=== PATIENT | male | born 1945 | race Caucasian/White ===

== ENCOUNTER → 2020-03-22 12:39 | Outpatient (CLI) | payer MEDICARE, SELFPAY ==
[2020-03-22 13:31] LABS: Uric Acid 6.9 mg/dL (3.5-8.5)
== END ==
PROVIDERS: PCP Internal Medicine; Referring Provider Podiatrist; Visit Provider Podiatrist
DX: M25.571 Pain in right ankle and joints of right foot (principal)
CPT/HCPCS: 36415; 84550

== ENCOUNTER → 2020-07-24 16:07 | Outpatient (CLI) | payer MEDICARE, SELFPAY ==
[2020-07-25 18:43] LABS: COVID19 Sendout Not Detected (Not Detect)
== END ==
PROVIDERS: PCP Internal Medicine; Visit Provider Physician Assistant
DX: Z11.59 Encounter for screening for other viral diseases (principal)
CPT/HCPCS: 87635

== ENCOUNTER → 2020-10-25 10:37 | Outpatient (CLI) | payer MEDICARE, SELFPAY ==
--- NOTE | 2020-10-25 | DI.CT.S_ITS ---
PROCEDURE: CT UE RT WO CON INDICATIONS: Primary osteoarthritis, right shoulder TECHNIQUE: Noncontrast 1-1.5 mm thick sections acquired from the acromioclavicular joint to the inferior scapula, with coronal and sagittal reformatting. COMPARISON: None. FINDINGS: Image quality: Excellent. Bones: Severe glenohumeral joint degeneration with bulky osteophyte formation. There is oaiq-um-pyep appearance. Multiple scattered loose bodies versus heterotopic ossification seen anterior to the humeral head, subcentimeter in size. No fracture. Severe AC joint degeneration. Soft tissues: The visualized right upper lobe grossly unremarkable except for scattered scarring/atelectasis. Calcific tendinitis noted image 190/5. IMPRESSION: Severe right shoulder osteoarthritis with pmtd-ju-xtcs appearance. Bulky osteophyte formation. Multiple sub cm possible small loose bodies and/or heterotopic ossification at the anterior joint. Calcific tendonitis Dictated by: Gokul Bertrand M.D. on 10/25/2020 at 11:25 Approved by: Gokul Bertrand M.D. on 10/25/2020 at 11:34
== END ==
PROVIDERS: PCP Internal Medicine; Referring Provider Internal Medicine; Visit Provider Orthopaedic Surgery
DX: M19.011 Primary osteoarthritis, right shoulder (principal); M75.31 Calcific tendinitis of right shoulder
CPT/HCPCS: 73200

== ENCOUNTER → 2021-01-16 10:43 | Outpatient (CLI) | payer MEDICARE, SELFPAY ==
[2021-01-16] MEDS: COVID-19 VACC, Ad26(JANSSEN)/PF 0.5 ML IM (10:48)
== END ==
PROVIDERS: PCP Internal Medicine; Visit Provider Internal Medicine
DX: Z23 Encounter for immunization (principal)
CPT/HCPCS: 0031A; 91303

== ENCOUNTER 2021-06-12 15:58 | Emergency (ER) | payer MEDICARE, SELFPAY ==
[2021-06-12 16:06] VITALS: BP 205/93; PULSE 70; RESP 18; TEMP 36.7; O2SAT 98
--- NOTE | 2021-06-12 16:09 | DI.RAD.S_ITS ---
PROCEDURE: XR CHEST 2V INDICATIONS: Chest pain TECHNIQUE: 2 views of the chest were acquired. COMPARISON: None. FINDINGS: Surgical changes and devices: None. Lungs and pleura: Lungs are clear. No pleural effusions or pneumothorax. Mediastinum: Mediastinal contours are normal. Heart size is normal. Bones and chest wall: No suspicious bony abnormalities. Soft tissues appear unremarkable. IMPRESSION: No acute cardiopulmonary process demonstrated radiographically. Dictated by: Keny Perez M.D. on 06/12/2021 at 16:33 Approved by: Keny Perez M.D. on 06/12/2021 at 16:34
[2021-06-12 16:29] LABS: Add Manual Diff / Slide Review NO; Basophils Absolute Auto 100 /uL (0-100); Basophils Percent Auto 0.9 % (0-2); Eosinophils Absolute Auto 100 /uL (0-450); Eosinophils Percent Auto 1.9 % (2-4); Hematocrit 43.4 % (41-53); Hemoglobin 14.5 g/dL (13.5-17.5); Lymphocytes Absolute Auto 1800 /uL (1100-4500); Lymphocytes Percent Auto 29.7 % (25-40); Mean Corpuscular HGB Conc 33.5 % (30-36); Mean Corpuscular Hemoglobin 31.4 PG (26-34); Mean Corpuscular Volume 93.7 fL (80-100); Monocytes Absolute Auto 600 /uL (0-900); Monocytes Percent Auto 10.4 % (3-14); Neutrophils Absolute Auto 3500 /uL (1500-7000); Neutrophils Percent Auto 57.1 % (50-75); Platelet Count 196 X10^3/uL (150-400); Red Blood Cell Count 4.63 X10^6/uL (4.5-5.9); Red Cell Distribution Width 13.2 % (11.6-14.8); White Blood Cell Count 6.1 X10^3/uL (4.5-11.0)
[2021-06-12 16:45] LABS: Alanine Aminotransferase 27 IU/L (<50); Albumin 4.9 g/dL (3.5-5.0); Albumin Globulin Ratio 1.6 (1.0-2.8); Alkaline Phosphatase 69 U/L (38-126); Aspartate Aminotransferase 44 IU/L (17-59); BUN Creatinine Ratio 23.8 (6-22); Bilirubin Total 0.7 mg/dL (0.2-1.3); Blood Urea Nitrogen 36 mg/dL (9-20); Calcium 10.3 mg/dL (8.4-10.2); Carbon Dioxide 22 mmol/L (22-32); Chloride 104 mmol/L (98-107); Creatine Kinase 275 U/L (55-170); Estimated Glomerular Filt Rate 45.4 mL/min (>60); Globulin 3.1 g/dL (1.7-4.1); Glucose 137 mg/dL (80-110); HEMOLYSIS 20 (0-50); Lipase 118 U/L (23-300); Sodium 137 mmol/L (137-145)
[2021-06-12 16:49] LABS: D Dimer < 200 ng/mL (<230)
[2021-06-12 16:57] LABS: Troponin I < 0.012 ng/mL (0.01-0.034)
[2021-06-12 17:01] LABS: Creatine Kinase MB 5.56 ng/mL (<2.37)
--- NOTE | 2021-06-12 20:29 | ED.CHESTPAIN ---
HPI - Chest Pain General Chief Complaint: Chest Pain Stated Complaint: sent for central chest pain Source: patient Mode of arrival: Ambulatory History of Present Illness HPI narrative: Patient left without being seen by myself. Related Data Home Medications Medication Instructions Recorded Confirmed Metformin Hydrochloride 850 mg PO TID #0 03/07/13 (GLUCOPHAGE) ACETAMINOPHEN 325 mg PO Q6HP PRN #0 tab 08/14/16 [ACCU-CHEK ANDRES PLUS] #0 08/14/16 glyburide 5 mg tablet 850 mg PO TID #0 08/14/16 [LISINOPRIL] #0 09/11/16 vit C,M-Bn-rzapqu-lutein-zeaxan 60 1 cap PO QDAY #0 12/28/17 mg-13.5 mg-15 mg-2 mg-6 mg capsule (Ocuvite Lutein and Zeaxanthin) Previous Rx's Medication Instructions Recorded benzonatate 100 mg capsule 100 mg PO TID #30 cap 12/28/17 (Tessalon Perles) ipratropium 20 mcg-albuterol 100 1 puff INH QID #1 inh 12/28/17 mcg/actuation mist for inhalation (Combivent Respimat) Allergies Allergy/AdvReac Type Severity Reaction Status Date / Time No Known Drug Allergies Allergy Verified 06/12/21 16:08 Exam Initial Vital Signs Initial Vital Signs: Vital Signs Temperature 98.1 F 06/12/21 16:06 Pulse Rate 70 06/12/21 16:06 Respiratory Rate 18 06/12/21 16:06 Blood Pressure 205/93 H 06/12/21 16:06 Pulse Oximetry 98 06/12/21 16:06 Course Orders Ordered: ED Orders 06/12/21 16:09 XR chest 2V Stat EKG-12 Lead Stat 06/12/21 16:16 Complete Blood Count AUTO DIFF Stat Comprehensive Metabolic Panel Stat DD [D Dimer] Stat Lipase Stat Troponin & CK Cardiac Panel Stat Vital Signs Vital signs: Vital Signs - 8 hr 06/12/21 16:06 Temperature 98.1 F Pulse Rate 70 Respiratory Rate 18 Blood Pressure 205/93 H Pulse Oximetry 98 MDM - Chest Pain Lab Data Result diagrams: 06/12/21 16:16 06/12/21 16:16 Labs: Lab Results 06/12/21 06/12/21 06/12/21 Range/Units 16:16 16:16 16:16 WBC 6.1 (4.5-11.0) X10^3/uL RBC 4.63 (4.5-5.9) X10^6/uL Hgb 14.5 (13.5-17.5) g/dL Hct 43.4 (41-53) % MCV 93.7 (80-100) fL MCH 31.4 (26-34) PG MCHC 33.5 (30-36) % RDW 13.2 (11.6-14.8) % Plt Count 196 (150-400) X10^3/uL Neut % (Auto) 57.1 (50-75) % Lymph % (Auto) 29.7 (25-40) % [place]cock % (Auto) 10.4 (3-14) % Eos % (Auto) 1.9 L (2-4) % Baso % (Auto) 0.9 (0-2) % Neut # (Auto) 3500 (6214-9143) /uL Lymph # (Auto) 1800 (3836-3022) /uL [place]cock # (Auto) 600 (0-900) /uL Eos # (Auto) 100 (0-450) /uL Baso # (Auto) 100 (0-100) /uL D-Dimer < 200 (<230) ng/mL Sodium 137 (137-145) mmol/L Potassium 4.0 (3.4-5.1) mmol/L Chloride 104 (98-107) mmol/L Carbon Dioxide 22 (22-32) mmol/L BUN 36 H (9-20) mg/dL Creatinine 1.51 H (0.66-1.25) mg/dL Estimated GFR 45.4 L (>60) mL/min BUN/Creatinine Ratio 23.8 H (6-22) Glucose 137 H (80-110) mg/dL Calcium 10.3 H (8.4-10.2) mg/dL Total Bilirubin 0.7 (0.2-1.3) mg/dL AST 44 (17-59) IU/L ALT 27 (<50) IU/L Alkaline Phosphatase 69 (38-126) U/L Total Creatine Kinase 275 H (55-170) U/L CK-MB (CK-2) 5.56 H (<2.37) ng/mL CK-MB (CK-2) Rel Index 2.0 (1.5-5.0) % Troponin I < 0.012 (0.01-0.034) ng/mL Total Protein 8.0 (6.3-8.2) g/dL Albumin 4.9 (3.5-5.0) g/dL Globulin 3.1 (1.7-4.1) g/dL Albumin/Globulin Ratio 1.6 (1.0-2.8) Lipase 118 (23-300) U/L Imaging Data Chest x-ray: Radiologist's Impression: [address] [id number] ReportSigned Patient: Arslan Bain SMR#: [id number]: 6Acct:[id number]/Sex: 75 / MDate of Service: 06/12/21Loc: EDAccession Number: [id number] Procedure: XR chest 2V Ordering Provider: Claire Moseley D.O. PROCEDURE: XR CHEST 2V INDICATIONS: Chest pain TECHNIQUE: 2 views of the chest were acquired. COMPARISON: None. FINDINGS: Surgical changes and devices: None. Lungs and pleura: Lungs are clear. No pleural effusions or pneumothorax. Mediastinum: Mediastinal contours are normal. Heart size is normal. Bones and chest wall: No suspicious bony abnormalities. Soft tissues appear unremarkable. IMPRESSION: No acute cardiopulmonary process demonstrated radiographically. Dictated by: Keny Perez M.D. on 06/12/2021 at 16:33 Approved by: Keny Perez M.D. on 06/12/2021 at 16:34 ECG Data Interpretation: NSR, rate 63, pr 162, qrs of 98, qtc 423. No acute ST chnges appreciated. Patient has prior from 05/23/16 and appears similar. Discharge Plan Departure Patient Disposition: Left Without Being Seen Clinical Impression: Patient left before evaluation by physician
== END 2021-06-12 17:49 | disposition left against medical advice (07) ==
PROVIDERS: Emergency Provider Emergency Medicine; PCP Internal Medicine
DX: R07.9 Chest pain, unspecified (principal)
CPT/HCPCS: 71046; 80053; 82550; 82553; 83690; 84484; 85025; 85379; 93005; 99282

== ENCOUNTER 2021-06-13 12:51 | Emergency (ER) | payer MEDICARE, SELFPAY ==
[2021-06-13] VITALS (8 sets, daily range): BP systolic 174–199; BP diastolic 83–91; PULSE 62–68; RESP 16–18; TEMP 36.1; O2SAT 95–97; BMI 26.0
[2021-06-13 15:25] LABS: Add Manual Diff / Slide Review NO; Basophils Absolute Auto 0 /uL (0-100); Basophils Percent Auto 0.7 % (0-2); Eosinophils Absolute Auto 100 /uL (0-450); Eosinophils Percent Auto 1.9 % (2-4); Hematocrit 41.9 % (41-53); Lymphocytes Absolute Auto 1700 /uL (1100-4500); Lymphocytes Percent Auto 27.8 % (25-40); Mean Corpuscular HGB Conc 33.5 % (30-36); Mean Corpuscular Hemoglobin 31.2 PG (26-34); Mean Corpuscular Volume 93.1 fL (80-100); Monocytes Absolute Auto 600 /uL (0-900); Monocytes Percent Auto 10.4 % (3-14); Neutrophils Absolute Auto 3600 /uL (1500-7000); Neutrophils Percent Auto 59.2 % (50-75); Platelet Count 198 X10^3/uL (150-400); Red Cell Distribution Width 13.5 % (11.6-14.8); White Blood Cell Count 6.1 X10^3/uL (4.5-11.0)
[2021-06-13 15:34] LABS: Alanine Aminotransferase 25 IU/L (<50); Albumin 4.6 g/dL (3.5-5.0); Albumin Globulin Ratio 1.6 (1.0-2.8); Alkaline Phosphatase 72 U/L (38-126); Aspartate Aminotransferase 36 IU/L (17-59); BUN Creatinine Ratio 28.4 (6-22); Bilirubin Total 0.7 mg/dL (0.2-1.3); Blood Urea Nitrogen 38 mg/dL (9-20); Carbon Dioxide 22 mmol/L (22-32); Chloride 103 mmol/L (98-107); Creatine Kinase 248 U/L (55-170); Estimated Glomerular Filt Rate 52.1 mL/min (>60); Globulin 2.8 g/dL (1.7-4.1); Glucose 119 mg/dL (80-110); HEMOLYSIS 27 (0-50); Potassium 4.3 mmol/L (3.4-5.1); Sodium 138 mmol/L (137-145); Total Protein 7.4 g/dL (6.3-8.2)
--- NOTE | 2021-06-13 15:42 | ED_ITS ---
HPI - Chest Pain General Chief Complaint: Chest Pain Stated Complaint: revisit- chest pain, Time Seen by Provider: 06/13/21 15:01 Source: patient Mode of arrival: Ambulatory Limitations: no limitations History of Present Illness HPI narrative: 75-year-old male nonsmoker with history of hypertension presents at the request of the [facility] for evaluation. He states that he has had about 2 weeks of a centrally located chest discomfort. He states it has been there persistently over that time frame without any provocation, palliation or radiation. He denies associated symptoms such as dizziness, weakness, lightheadedness. He has no shortness of breath, nausea or vomiting. He states he is quite active in frequently will walk the [place] and denies any increased exercise intolerance, exertional fatigue or worsening of his pain. He is resting comfortably and otherwise well and free of complaint. He denies any change with eating, drinking or position. He had spoken with his care provider at the [facility] who suggested he present to the emergency department for evaluation of a possible pulmonary embolism. Patient presented yesterday and had labs but left prior to their completion. He returns today for completion of his workup Related Data Home Medications Medication Instructions Recorded Confirmed Metformin Hydrochloride 850 mg PO TID #0 03/07/13 (GLUCOPHAGE) ACETAMINOPHEN 325 mg PO Q6HP PRN #0 tab 08/14/16 [ACCU-CHEK ANDRES PLUS] #0 08/14/16 glyburide 5 mg tablet 850 mg PO TID #0 08/14/16 [LISINOPRIL] #0 09/11/16 vit C,I-Fy-jnfugm-lutein-zeaxan 60 1 cap PO QDAY #0 12/28/17 mg-13.5 mg-15 mg-2 mg-6 mg capsule (Ocuvite Lutein and Zeaxanthin) Previous Rx's Medication Instructions Recorded benzonatate 100 mg capsule 100 mg PO TID #30 cap 12/28/17 (Tessalon Perles) ipratropium 20 mcg-albuterol 100 1 puff INH QID #1 inh 12/28/17 mcg/actuation mist for inhalation (Combivent Respimat) Allergies Allergy/AdvReac Type Severity Reaction Status Date / Time No Known Drug Allergies Allergy Verified 06/12/21 16:08 Review of Systems Review of Systems Narrative: GENERAL: Denies chills, fatigue, malaise, fever, sweats. HEENT: Denies sinus pain, ear pain, sore throat, difficulty swallowing, dizziness. RESPIRATORY: Denies dyspnea, cough, wheezing, hemoptysis, sputum. CARDIOVASCULAR: See HPI GASTROINTESTINAL: Denies nausea, vomiting, abdominal pain, diarrhea, constipation, melena. : Denies dysuria, frequency, incontinence, hematuria, urinary retention. MUSCULOSKELETAL: denies weakness, joint pain, or bony pain SKIN: Denies rash, skin lesions, or other NEUROLOGIC: Denies weakness, headache, numbness, change in speech, confusion, seizures, incoordination. PSYCHIATRIC: No concerning psychosocial issues. 12 point review of systems is negative except for those stated above Patient History Social History Smoking Status: Never smoker Smoking Status: Never smoker Substance Use Type: does not use Exam Narrative Exam Narrative: GENERAL: [75] year old patient appears stated age. Well- developed patient, in mild distress. HEAD: Atraumatic. Normocephalic. EYES: Pupils equal round and reactive. Extraocular motions intact. No scleral icterus. No injection or drainage. ENT: Nose without bleeding, purulent drainage. Throat without erythema, tonsillar hypertrophy or exudate. Airway patent. NECK: Trachea midline. Non tender CARDIOVASCULAR: Regular rate and rhythm without murmurs, gallops, or rubs. RESPIRATORY: Clear to auscultation. Breath sounds equal bilaterally. No wheezes, rales, or rhonchi. GASTROINTESTINAL: Abdomen soft, non-tender, nondistended. EXTREMITIES: No edema or joint tenderness. BACK: Nontender without deformity or crepitance. No flank tenderness. NEURO: AOx3. SKIN: No rash or erythema of visible areas Initial Vital Signs Initial Vital Signs: Vital Signs Temperature 97.0 F L 06/13/21 13:15 Pulse Rate 68 06/13/21 13:15 Respiratory Rate 18 06/13/21 13:15 Blood Pressure 189/84 H 06/13/21 13:15 Pulse Oximetry 96 06/13/21 13:15 Course Orders Ordered: ED Orders 06/13/21 15:00 Complete Blood Count AUTO DIFF Stat Comprehensive Metabolic Panel Stat Prothrombin Time INR Stat Troponin & CK Cardiac Panel Stat Vital Signs Vital signs: Vital Signs - 8 hr 06/13/21 13:15 06/13/21 15:11 06/13/21 15:30 Temperature 97.0 F L Pulse Rate 68 66 62 Respiratory Rate 18 16 18 Blood Pressure 189/84 H Pulse Oximetry 96 95 96 06/13/21 15:31 06/13/21 16:00 06/13/21 16:01 Temperature Pulse Rate 62 66 63 Respiratory Rate 17 17 17 Blood Pressure 199/83 H 188/91 H Pulse Oximetry 95 97 97 06/13/21 16:30 06/13/21 16:31 Temperature Pulse Rate 62 64 Respiratory Rate 16 17 Blood Pressure 174/83 H Pulse Oximetry 96 95 MDM - Chest Pain Lab Data Result diagrams: 06/13/21 15:00 06/13/21 15:00 Labs: Lab Results 06/13/21 06/13/21 06/13/21 Range/Units 15:00 15:00 15:00 WBC 6.1 (4.5-11.0) X10^3/uL RBC 4.50 (4.5-5.9) X10^6/uL Hgb 14.0 (13.5-17.5) g/dL Hct 41.9 (41-53) % MCV 93.1 (80-100) fL MCH 31.2 (26-34) PG MCHC 33.5 (30-36) % RDW 13.5 (11.6-14.8) % Plt Count 198 (150-400) X10^3/uL Neut % (Auto) 59.2 (50-75) % Lymph % (Auto) 27.8 (25-40) % Divide % (Auto) 10.4 (3-14) % Eos % (Auto) 1.9 L (2-4) % Baso % (Auto) 0.7 (0-2) % Neut # (Auto) 3600 (9485-1183) /uL Lymph # (Auto) 1700 (5495-5128) /uL Divide # (Auto) 600 (0-900) /uL Eos # (Auto) 100 (0-450) /uL Baso # (Auto) 0 (0-100) /uL PT 11.7 (10.1-12.7) SECONDS INR 1.0 (0.9-1.3) Sodium 138 (137-145) mmol/L Potassium 4.3 (3.4-5.1) mmol/L Chloride 103 (98-107) mmol/L Carbon Dioxide 22 (22-32) mmol/L BUN 38 H (9-20) mg/dL Creatinine 1.34 H (0.66-1.25) mg/dL Estimated GFR 52.1 L (>60) mL/min BUN/Creatinine Ratio 28.4 H (6-22) Glucose 119 H (80-110) mg/dL Calcium 10.0 (8.4-10.2) mg/dL Total Bilirubin 0.7 (0.2-1.3) mg/dL AST 36 (17-59) IU/L ALT 25 (<50) IU/L Alkaline Phosphatase 72 (38-126) U/L Total Creatine Kinase 248 H (55-170) U/L CK-MB (CK-2) 5.90 H (<2.37) ng/mL CK-MB (CK-2) Rel Index 2.4 (1.5-5.0) % Troponin I < 0.012 (0.01-0.034) ng/mL Total Protein 7.4 (6.3-8.2) g/dL Albumin 4.6 (3.5-5.0) g/dL Globulin 2.8 (1.7-4.1) g/dL Albumin/Globulin Ratio 1.6 (1.0-2.8) ECG Data Interpretation: EKG is normal sinus rhythm rate [ 62] and free of any signs of ischemia or ectopy. No ST segmental elevation or depression. No T wave inversions MDM Narrative Medical decision making narrative: Multiple causes of chest pain considered including MT, PE, pneumothorax, pneumonia, aortic dissection, and pleurisy. Noe mckeon reports no radiation, no diaphoresis, no provocation with exertion, and no vomiting. Multiple troponins are negative, EKG nonischemic. Pulmonary embolism considered but thought unlikely given negative D-dimer, lack of shortness of breath. Extensive return precautions given and questions answered to his apparent satisfaction Discharge Plan Departure Patient Disposition: Home Clinical Impression: Atypical chest pain Instructions: DI for Atypical Chest Pain Activity Restrictions/Additional Instructions: *You have been diagnosed with [atypical chest pain. Your labs are very reassuri ng and would suggest against the likelihood of heart attack or blood clot ] *What to do: *Please continue to take your regular medications as directed. [ ] New medication prescriptions sent to your pharmacy: [ ] [ ] New medication written as a paper prescription [x ] No new medications given *Please follow up with your primary care provider in 2-3 days, call for an appointment. Let them know you were seen in the Emergency Department and that we ask that you be seen in follow up. We will electronically transmit a record of today's note if your PCP is in our system *If you do not have a primary care provider please contact the [facility] Resource line at [phone]. They will ask some questions about your medical history and help get you set up with a doctor in the community. *Return to Emergency Department if you should have any new, worsening or concerning symptoms, such as [fever greater than 101 F, shaking chills, worsening pain, persistent vomiting or other bothersome symptoms] Prescriptions: No Action Metformin Hydrochloride (GLUCOPHAGE) 850 mg PO TID Qty: 0 RF: 0 ACETAMINOPHEN 325 mg PO Q6HP PRNQty: 0 RF: 0 [ACCU-CHEK ANDRES PLUS] Qty: 0 RF: 0 glyburide 5 MG tablet 850 mg PO TID Qty: 0 RF: 0 [LISINOPRIL] Qty: 0 RF: 0 vit C,C-Cs-rvopu-lutein-zeaxan [Ocuvite Lutein and Zeaxanthin] 1 EACH capsule 1 cap PO QDAY Qty: 0 RF: 0 benzonatate [Tessalon Perles] 100 MG capsule 100 mg PO TID Qty: 30 RF: 0 ipratropium-albuterol [Combivent Respimat] 4 GM mist 1 puff INH QID Qty: 1 RF: 0 Referrals: Gabriella Pride MD [Primary Care Provider] -
[2021-06-13 15:45] LABS: Troponin I < 0.012 ng/mL (0.01-0.034)
[2021-06-13 15:46] LABS: Prothrombin Time 11.7 SECONDS (10.1-12.7)
[2021-06-13 15:49] LABS: CKMB % Relative Index 2.4 % (1.5-5.0)
== END 2021-06-13 16:36 | disposition home or self-care (01) ==
PROVIDERS: Emergency Provider Emergency Medicine; PCP Internal Medicine
DX: R07.89 Other chest pain (principal)
CPT/HCPCS: 80053; 82550; 82553; 84484; 85025; 85610; 93005; 99281; 99284

== ENCOUNTER → 2021-09-11 09:35 | Outpatient (CLI) | payer MEDICARE, SELFPAY ==
[2021-09-11 12:32] LABS: COVID19 -Nasal RAPID Negative (Negative)
== END ==
PROVIDERS: PCP Internal Medicine; Visit Provider Nurse Practitioner Family
DX: Z20.822 Contact with and (suspected) exposure to COVID-19 (principal); R09.81 Nasal congestion; R51.9 Headache, unspecified
CPT/HCPCS: 87635

== ENCOUNTER → 2021-09-17 09:32 | Outpatient (CLI) | payer MEDICARE, SELFPAY ==
--- NOTE | 2021-09-17 18:25 | DI.NM.S_ITS ---
PROCEDURE PERFORMED: Exercise treadmill stress and rest myocardial perfusion imaging study with gating to assess ejection fraction and regional wall motion. DATE OF PROCEDURE: September 17, 2021 ORDERING PROVIDER: Gabriella Pride M.D. INDICATIONS: The patient is a 76-year-old male with chest discomfort. CARDIAC STRESS: The patient was able to exercise for 4 minutes 30 seconds on a standard Mitchell protocol suggesting moderately impaired exercise capacity with an CHIO of +25%. He had a normal heart rate and blood pressure response, achieving a maximum heart rate of 149 BPM (103% of his predicted maximum). He had no chest discomfort or other anginal pain. His resting ECG is normal. While his stress EKG is corrupted by motion artifact, his immediate recovery ECG showed no significant ST-segment shifts or arrhythmias. At 3 minutes 25 seconds of exercise, a heart rate of 131 BPM, 25.5 millicuries of technetium-99m Myoview was injected. He was imaged 15 minutes later using a gated SPECT acquisition protocol. Earlier in the day while at rest, he had been injected with 11.4 millicuries of technetium-99m Myoview was imaged 30 minutes later, again using a gated SPECT acquisition protocol. FINDINGS: RAW DATA: There is fairly good myocardial tracer uptake. Lung/heart ratio is normal at 0.34 with a normal TID ratio of 0.94. QUANTITATED GATED SPECT: Post-stress ejection fraction is estimated at 68% without any focal wall motion abnormality. Resting ejection fraction is 67% with a normal resting end-diastolic volume of 125 mL. MYOCARDIAL PERFUSION IMAGING: Post-stress supine images show a yemo-[id number]-hfuzwxvw perfusion defect in the proximal to mid inferior wall, becoming more mild distally in a pattern that would be consistent with diaphragmatic attenuation, supported by its complete resolution on the prone images which reveal a homogeneous, uniform pattern of tracer activity without any perfusion defects. The resting images show a similar perfusion pattern to that of the post-stress supine images with no significant improvement in the inferior wall perfusion defect. IMPRESSION: 1. Normal myocardial perfusion study. 2. Mild to moderate fixed inferior perfusion defect that resolves on prone imaging, consistent with diaphragmatic attenuation artifact. There is no compelling evidence for any myocardial ischemia or previous myocardial infarction. 3. Normal left ventricular systolic function without any focal wall motion abnormality. 4. Moderately impaired exercise capacity without angina or ECG evidence of ischemia. Arslan Bain - RS/fn/cs doc#: [id number]/job#: [id number] dd: 09/17/2021 16:37:00 dt: 09/17/2021 18:16:00 DICTATING MD/COPIES TO: Gus Jacome MD; Gabriella Pride M.D. COPIES MNE: ZOE;
== END ==
PROVIDERS: PCP Internal Medicine; Referring Provider Internal Medicine; Visit Provider Internal Medicine
DX: R07.89 Other chest pain (principal)
CPT/HCPCS: 78452; 93017; A9502

== ENCOUNTER 2022-10-03 08:40 | Emergency (ER) | payer MEDICARE, SELFPAY ==
[2022-10-03] VITALS (14 sets, daily range): BP systolic 121–193; BP diastolic 60–91; PULSE 53–67; RESP 12–19; TEMP 36.3; O2SAT 92–98; BMI 26.8
--- NOTE | 2022-10-03 09:13 | DI.RAD.S_ITS ---
PROCEDURE: XR CHEST 1V INDICATIONS: Chest pain TECHNIQUE: One view of the chest was acquired. COMPARISON: [facility], CR, XR CHEST 2V, 06/12/2021, 16:18. FINDINGS: Surgical changes and devices: None. Lungs and pleura: Mild right upper lobe lateral subpleural scarring. No acute consolidation, effusion, or pneumothorax. Mediastinum: Mediastinal contours appear normal. Heart size is normal. Bones and chest wall: No suspicious bony lesions. Overlying soft tissues appear unremarkable. IMPRESSION: No acute cardiopulmonary disease. Dictated by: Chelsea Smith M.D. on 10/03/2022 at 10:04 Approved by: Chelsea Smith M.D. on 10/03/2022 at 10:05
[2022-10-03 09:23] LABS: Add Manual Diff / Slide Review NO; Basophils Absolute Auto 0 /uL (0-100); Basophils Percent Auto 0.8 % (0-2); Eosinophils Absolute Auto 300 /uL (0-450); Eosinophils Percent Auto 5.7 % (2-4); Hemoglobin 14.4 g/dL (13.5-17.5); Lymphocytes Absolute Auto 1400 /uL (1100-4500); Lymphocytes Percent Auto 23.1 % (25-40); Mean Corpuscular HGB Conc 33.5 % (30-36); Mean Corpuscular Hemoglobin 31.7 PG (26-34); Mean Corpuscular Volume 94.9 fL (80-100); Monocytes Absolute Auto 700 /uL (0-900); Monocytes Percent Auto 11.4 % (3-14); Neutrophils Absolute Auto 3600 /uL (1500-7000); Platelet Count 174 X10^3/uL (150-400); Red Blood Cell Count 4.54 X10^6/uL (4.5-5.9); Red Cell Distribution Width 14.6 % (11.6-14.8); White Blood Cell Count 6.1 X10^3/uL (4.5-11.0)
[2022-10-03 09:26] LABS: Alanine Aminotransferase 29 IU/L (<50); Albumin 4.5 g/dL (3.5-5.0); Albumin Globulin Ratio 1.3 (1.0-2.8); Alkaline Phosphatase 78 U/L (38-126); Aspartate Aminotransferase 38 IU/L (17-59); BUN Creatinine Ratio 24.5 (6-22); Bilirubin Total 0.6 mg/dL (0.2-1.3); Blood Urea Nitrogen 34 mg/dL (9-20); Calcium 9.1 mg/dL (8.4-10.2); Carbon Dioxide 25 mmol/L (22-32); Chloride 103 mmol/L (98-107); Creatine Kinase 243 U/L (55-170); Estimated Glomerular Filt Rate 53 mL/min (>60); Globulin 3.4 g/dL (1.7-4.1); Glucose 224 mg/dL (80-110); Lipase 108 U/L (23-300); Potassium 4.4 mmol/L (3.4-5.1); Sodium 138 mmol/L (137-145); Total Protein 7.9 g/dL (6.3-8.2)
--- NOTE | 2022-10-03 09:31 | ED.CHESTPAIN ---
HPI - Chest Pain General Chief Complaint: Chest Pain Stated Complaint: chest pain x5 shoulder blade pain shooting pain Time Seen by Provider: 10/03/22 09:12 Source: patient Mode of arrival: Ambulatory Limitations: no limitations Limitations: no limitations History of Present Illness HPI narrative: 77-year-old male who is here for evaluation of occasional left-sided chest discomfort and back discomfort. He states the symptoms been going on since the beginning of the week. No fevers. Somewhat worse with movement. Not worse with palpation. Does not change with eating. Has had fairly consistent back discomfort since 0200 hours in the morning but his chest discomfort has come and gone. Is a insulin-dependent diabetic. Has been on blood pressure medications in the past but he states his primary doctor took him off of that because he did not need them anymore. He did take some baby aspirin earlier in the week when he had the discomfort. No lower extremity swelling. No abdominal pain. No shortness of breath. He is approximately 3 weeks after a COVID infection. Related Data Home Medications Medication Instructions Recorded Confirmed Metformin Hydrochloride 850 mg PO TID ##0 03/07/13 (GLUCOPHAGE) ACETAMINOPHEN 325 mg PO Q6HP PRN #0 tabs 08/14/16 [ACCU-CHEK ANDRES PLUS] ##0 08/14/16 glyburide 5 mg tablet 850 mg PO TID ##0 08/14/16 [LISINOPRIL] ##0 09/11/16 vit C,Q-Vy-jtyztd-lutein-zeaxan 60 1 cap PO QDAY ##0 12/28/17 mg-13.5 mg-15 mg-2 mg-6 mg capsule (Ocuvite Lutein and Zeaxanthin) Previous Rx's Medication Instructions Recorded benzonatate 100 mg capsule 100 mg PO TID #30 caps 12/28/17 (Tessalon Perles) ipratropium 20 mcg-albuterol 100 1 puff INH QID #1 inh 12/28/17 mcg/actuation mist for inhalation (Combivent Respimat) Allergies Allergy/AdvReac Type Severity Reaction Status Date / Time No Known Drug Allergies Allergy Verified 06/12/21 16:08 Review of Systems Review of Systems ROS Unobtainable: All systems reviewed & are unremarkable except as noted in HPI and below Patient History Medical History Insulin dependent diabetes mellitus Social History Smoking Status: Never smoker Smoking Status: Never smoker Substance Use Type: does not use Exam Initial Vital Signs Initial Vital Signs: Vital Signs Temperature 97.4 F L 10/03/22 09:02 Pulse Rate 67 10/03/22 09:02 Respiratory Rate 19 10/03/22 09:02 Blood Pressure 193/91 H 10/03/22 09:02 Pulse Oximetry 98 10/03/22 09:02 Oxygen Delivery Method 10/03/22 09:02 Const General: cooperative, comfortable and No ill appearing HENMT Head: normal to inspection and normocephalic Chest Chest: No crepitus and No tenderness Resp Effort & Inspection: normal respiratory effort Auscultation: clear to auscultation bilaterally Cardio Rate: regular rate Rhythm: regular rhythm GI Inspection: normal to inspection and non-distended Palpation: soft and No tender Skin General: no rashes or lesions noted Neuro General: patient alert, patient awake, patient oriented x3 and moves all extremities Speech: speech normal Extrem General: No edema Scores HEART Score Heart Score history: Slightly Suspicious Heart Score EKG: Normal Heart Score Age: > or = 65 years old Heart Score risk factors: 1-2 risk factors Heart Score troponin: < or = to normal limit Heart Score Total: 3 Course Orders Ordered: ED Orders 10/03/22 10:58 Troponin & CK Cardiac Panel Stat Vital Signs Vital signs: Vital Signs - 8 hr 10/03/22 10:30 10/03/22 10:31 10/03/22 10:31 Pulse Rate 53 L 53 L Respiratory Rate Blood Pressure 143/64 H Pulse Oximetry 95 94 10/03/22 11:00 10/03/22 11:01 10/03/22 11:01 Pulse Rate 54 L 55 L Respiratory Rate 16 Blood Pressure 121/66 Pulse Oximetry 94 93 10/03/22 11:30 10/03/22 11:30 10/03/22 12:00 Pulse Rate 53 L 61 Respiratory Rate Blood Pressure 146/68 H Pulse Oximetry 96 97 10/03/22 12:01 10/03/22 12:01 Pulse Rate 60 Respiratory Rate Blood Pressure 145/64 H Pulse Oximetry 95 MDM - Chest Pain Lab Data Attestation: I reviewed the patient's lab results. Result diagrams: 10/03/22 09:00 10/03/22 09:00 Labs: Lab Results 10/03/22 10/03/22 10/03/22 Range/Units 09:00 09:00 10:58 WBC 6.1 (4.5-11.0) X10^3/uL RBC 4.54 (4.5-5.9) X10^6/uL Hgb 14.4 (13.5-17.5) g/dL Hct 43.0 (41-53) % MCV 94.9 (80-100) fL MCH 31.7 (26-34) PG MCHC 33.5 (30-36) % RDW 14.6 (11.6-14.8) % Plt Count 174 (150-400) X10^3/uL Neut % (Auto) 59.0 (50-75) % Lymph % (Auto) 23.1 L (25-40) % [place] % (Auto) 11.4 (3-14) % Eos % (Auto) 5.7 H (2-4) % Baso % (Auto) 0.8 (0-2) % Neut # (Auto) 3600 (1928-4149) /uL Lymph # (Auto) 1400 (6961-8615) /uL [place] # (Auto) 700 (0-900) /uL Eos # (Auto) 300 (0-450) /uL Baso # (Auto) 0 (0-100) /uL Sodium 138 (137-145) mmol/L Potassium 4.4 (3.4-5.1) mmol/L Chloride 103 (98-107) mmol/L Carbon Dioxide 25 (22-32) mmol/L BUN 34 H (9-20) mg/dL Creatinine 1.39 H (0.66-1.25) mg/dL Estimated GFR 53 L (>60) mL/min BUN/Creatinine Ratio 24.5 H (6-22) Glucose 224 H (80-110) mg/dL Calcium 9.1 (8.4-10.2) mg/dL Total Bilirubin 0.6 (0.2-1.3) mg/dL AST 38 (17-59) IU/L ALT 29 (<50) IU/L Alkaline Phosphatase 78 (38-126) U/L Total Creatine Kinase 243 H 198 H (55-170) U/L CK-MB (CK-2) 3.88 H 3.30 H (<2.37) ng/mL CK-MB (CK-2) Rel Index 1.6 1.7 (1.5-5.0) % Troponin I < 0.012 < 0.012 (0.01-0.034) ng/mL Total Protein 7.9 (6.3-8.2) g/dL Albumin 4.5 (3.5-5.0) g/dL Globulin 3.4 (1.7-4.1) g/dL Albumin/Globulin Ratio 1.3 (1.0-2.8) Lipase 108 (23-300) U/L Imaging Data Chest x-ray: Radiologist's Impression: [address] [address] XRay Report Signed Patient: Arslan Bain MR#: [id number] : 1945 Acct:[id number] Age/Sex: 77 / M Date of Service: 10/03/22 Loc: ED Accession Number: [id number] ?? Procedure: XR chest 1V Ordering Provider: Dixon Wells D.O. PROCEDURE:? XR CHEST 1V ? INDICATIONS:? Chest pain ? TECHNIQUE:? One view of the chest was acquired.? ? COMPARISON:? [facility], , XR CHEST 2V, 06/12/2021, 16:18. ? FINDINGS:? ? Surgical changes and devices:? None.? ? Lungs and pleura:? Mild right upper lobe lateral subpleural scarring.? No acute consolidation, effusion, or pneumothorax. ? Mediastinum:? Mediastinal contours appear normal.? Heart size is normal.? ? Bones and chest wall:? No suspicious bony lesions.? Overlying soft tissues appear unremarkable.? ? IMPRESSION:? No acute cardiopulmonary disease.? ? ? Dictated by: Chelsea Smith M.D. on 10/03/2022 at 10:04 ? ? Approved by: Chelsea Smith M.D. on 10/03/2022 at 10:05?? ECG Data Attestation: I personally reviewed and interpreted this ECG as follows: Interpretation: Sinus rhythm Ventricular rate is 62 Occasional PACs and bigeminy pattern Normal QRS Normal axis No ST T wave changes MDM Narrative Medical decision making narrative: EKG is unremarkable, troponins negative x2. Chest x-ray is unremarkable. Is a low risk heart score. I did discuss the findings with him. He is had several days of symptoms. Will have him contact his primary doctor for follow-up. He had a stress test approximately 3 months ago that he reports was unremarkable. He was given return precautions. He expressed understanding and agreement. Discharge Plan Departure Patient Disposition: Home Clinical Impression: Atypical chest pain Instructions: DI for Atypical Chest Pain Activity Restrictions/Additional Instructions: I do recommend that you start taking a antacid medicines such as Pepcid/famotidine. You can start taking this on a daily basis for the next week. I recommend that you contact your primary doctor for a follow-up. Return to the emergency department for any new or worsening symptoms. Prescriptions: No Action Metformin Hydrochloride (GLUCOPHAGE) 850 mg PO TID Qty: 0 ACETAMINOPHEN 325 mg PO Q6HP PRNQty: 0 [ACCU-CHEK ANDRES PLUS] Qty: 0 glyburide 5 MG tablet 850 mg PO TID Qty: 0 [LISINOPRIL] Qty: 0 vit C,D-Oh-cwjki-lutein-zeaxan [Ocuvite Lutein and Zeaxanthin] 1 EACH capsule 1 cap PO QDAY Qty: 0 benzonatate [Tessalon Perles] 100 MG capsule 100 mg PO TID Qty: 30 0RF ipratropium-albuterol [Combivent Respimat] 4 GM mist 1 puff INH QID Qty: 1 0RF Referrals: Gabriella Pride MD [Primary Care Provider] - Visit Report Forms: Patient Portal/API
[2022-10-03 09:38] LABS: Troponin I < 0.012 ng/mL (0.01-0.034)
[2022-10-03 09:41] LABS: CKMB % Relative Index 1.6 % (1.5-5.0); Creatine Kinase MB 3.88 ng/mL (<2.37); HEMOLYSIS 24 (0-50)
[2022-10-03 11:30] LABS: Creatine Kinase 198 U/L (55-170)
[2022-10-03 11:43] LABS: Troponin I < 0.012 ng/mL (0.01-0.034)
[2022-10-03 11:45] LABS: CKMB % Relative Index 1.7 % (1.5-5.0)
== END 2022-10-03 12:35 | disposition home or self-care (01) ==
PROVIDERS: Emergency Provider Emergency Medicine; PCP Internal Medicine
DX: R07.89 Other chest pain (principal)
CPT/HCPCS: 36415; 71045; 80053; 82550; 82553; 83690; 84484; 85025; 93005; 99283; 99284

== ENCOUNTER → 2023-01-08 12:47 | Outpatient (CLI) | payer MEDICARE, SELFPAY ==
--- NOTE | 2023-01-08 | DI.MRI.S_ITS ---
PROCEDURE: MR SHOULDER RT WO CON INDICATIONS: Primary osteoarthritis, right shoulder TECHNIQUE: Noncontrast oblique coronal T2 fast spin echo with fat saturation, oblique sagittal T1 spin echo and T2 fast spin echo with fat saturation, axial T1 spin echo and T2 fast spin echo with fat saturation through the shoulder. COMPARISON: None. FINDINGS: Image quality: Excellent. Rotator cuff: Low-grade articular and bursal surface partial thickness tear involving distal supraspinatus is seen extending to musculotendinous junction. Distal infraspinatus tendinosis and low-grade articular surface partial-thickness tear is also noted. Distal subscapularis tendinosis is seen. No full-thickness rotator cuff tendon rupture. Sagittal images demonstrate mild to moderate supraspinatus muscle atrophy and mild infraspinatus and teres minor muscle atrophy. Bones and bursae: Moderate acromioclavicular joint osteoarthritic changes are noted with joint space narrowing, subchondral sclerosis and downward osteophyte formation depressing the musculotendinous junction of supraspinatus. Severe glenohumeral joint osteoarthritic changes are seen. No acute fracture or dislocation. Moderate amount of joint effusion and subacromial subdeltoid bursal fluid is seen. Suggestion of loose body in bicipital groove adjacent to proximal long head of biceps tendon is seen. Capsule and soft tissues: There is global signal abnormality throughoutright shoulder labrum suggestive of extensive labral tear. The long head of the biceps tendon demonstrates normal location and morphology. The rotator interval appears normal, without fibrosis. The coracohumeral ligament is normal in thickness. IMPRESSION: 1. Severe glenohumeral joint osteoarthritis and moderate acromioclavicular joint osteoarthritis. No fracture or dislocation. Moderate amount of joint effusion and subacromial subdeltoid bursal fluid. Fluid also seen within bicipital groove with suggestion of 9 mm loose body adjacent to proximal long head of biceps tendon. 2. Low-grade articular and bursal surface partial thickness tear involving distal supraspinatus extending to musculotendinous junction. Distal infraspinatus tendinosis and low-grade articular surface partial-thickness tear. Distal subscapularis tendinosis. Mild to moderate supraspinatus muscle atrophy and mild infraspinatus and teres minor muscle atrophy. 3. Suggestion of extensive right shoulder labral tear. Dictated by: Chaparro Ha M.D. on 01/08/2023 at 15:51 Approved by: Chaparro Ha M.D. on 01/08/2023 at 16:01
== END ==
PROVIDERS: PCP Internal Medicine; Referring Provider Orthopaedic Surgery Sports Medicine; Visit Provider Orthopaedic Surgery Sports Medicine
DX: M19.011 Primary osteoarthritis, right shoulder (principal); M75.111 Incomplete rotator cuff tear or rupture of right shoulder, not specified as traumatic; M24.011 Loose body in right shoulder
CPT/HCPCS: 73221

== ENCOUNTER → 2024-05-04 14:14 | Outpatient (CLI) | payer MEDICARE, SELFPAY ==
--- NOTE | 2024-05-04 14:18 | DI.CT.S_ITS ---
PROCEDURE: CT SINUS SCREEN WO CON INDICATIONS: Chronic pansinusitis TECHNIQUE: Noncontrast 3.0 mm axial images acquired from the frontal sinuses to the mid-sella, with coronal and sagittal reformats. For radiation dose reduction, the following was used: automated exposure control, adjustment of mA and/or kV according to patient size. COMPARISON: None. FINDINGS: Image quality: Excellent. Maxillary Sinuses: No bony remodeling or destruction. Air-fluid level within the left maxillary sinus. Mild bone remodeling of the left maxillary sinus wall. Circumferential mucosal thickening and polypoidal mucosal thickening of the right maxillary sinus. Ethmoid Air Cells: No bony remodeling or destruction. Sinuses are clear. Sphenoid Sinuses: No bony remodeling or destruction. Very mild mucosal thickening. Frontal Sinuses: No bony remodeling or destruction. Sinuses are clear. Ostiomeatal Complexes: Ostiomeatal complexes are patent. No Mireya cells. Miscellaneous: Visualized intra-orbital contents are normal. No elian bullosa or paradoxical turbinate curvature. No nasal septal deviation. IMPRESSION: Acute on chronic left maxillary sinusitis. Polypoidal mucosal thickening of the right maxillary sinus. Dictated by: Clement Sanon M.D. on 05/04/2024 at 19:38 Approved by: Clement Sanon M.D. on 05/04/2024 at 19:40
== END ==
PROVIDERS: PCP Family Medicine; Referring Provider Otolaryngology; Visit Provider Otolaryngology
DX: J01.00 Acute maxillary sinusitis, unspecified (principal); J32.4 Chronic pansinusitis; J33.8 Other polyp of sinus
CPT/HCPCS: 70486

== ENCOUNTER → 2025-05-29 11:42 | Outpatient (CLI) | payer OTHER, SELFPAY ==
--- NOTE | 2025-05-29 11:48 | DI.MRI.S_ITS ---
PROCEDURE: MR LUMBAR SPINE WO CON INDICATIONS: LOW BACK PAIN TECHNIQUE: Noncontrast sagittal T1 spin echo and T2 fast echo, sagittal STIR, and T2 fast spin echo through the lumbar spine. In cases with scoliosis, additional coronal T2 fast spin echo may be performed. COMPARISON: None. FINDINGS: Image quality: Excellent. Alignment and Curvature: There is normal bony alignment. Bone Marrow: Marrow is of normal overall signal. No acute vertebral body compression fractures. Spinal Cord: Conus medullaris terminates at the L1 level. Visualized cord demonstrates normal signal and size. Paraspinous Soft Tissues: No paravertebral masses. The combination disc bulging with endplate spurring, ligamentum flavum hypertrophy and facet arthropathy result in the following. T12-L1: Mild central canal stenosis with mild bilateral foraminal stenosis. L1-L2: Moderate central canal stenosis with moderate left and mild right foraminal stenosis. L2-L3: Moderate central canal stenosis with moderate bilateral foraminal stenosis. L3-L4: Severe central canal stenosis with severe right and moderate left foraminal stenosis. L4-L5: Moderate central canal stenosis with severe right and moderate left foraminal stenosis. L5-S1: Mild bilateral foraminal stenosis. IMPRESSION: Multilevel degenerative disc disease results in varying degrees of central canal and foraminal stenosis. REFERENCE DELETE FROM FINAL REPORT Less common manifestations of disc degeneration: * dorsal epidural disc herniation. * intradural disc herniation (may have beaklike morphology). * symptomatic thoracic herniation: often, calcified, intradural. * far lateral disc herniation. * discal cyst: may have blood-fluid level. * fibrocartilaginous embolism of disc material to spinal cord. * calcified disc or bony spicule causing spinal CSF leak. Lumbar disc nomenclature v2.0: Recommendations of the combined task forces of the [place] [employer], [place] [employer], and [place] [employer] Annular fissures: seen as high intensity zones on MRI. Concentric, radial, transverse. Degeneration encompasses: desiccation, fibrosis, disc narrowing, diffuse bulge, fissuring, mucinous degeneration of annulus, intradiscal gas, vertebral apophyseal osteophytes, end plate defects, inflammatory changes and sclerosis (Modic types I-III). Disc herniation: localized or focal displacement of disc material less than 25% (90 degrees) of disc periphery on axial images. Diffuse bulging and asymmetric bulging (>25%) are not considered herniation. * Protrusion, extrusion, sequestration. * Disc fragment can migrate (refers only to position, not contiguity). * Intravertebral herniations (aka Schmorl nodes). * Herniations may be contained (if covered by intact outer annulus and/or PLL) vs uncontained. Subligamentous is considered synonymous with contained. A sequestered and/or migrated disc fragment can still be contained. Canal and foraminal stenosis: use 2-D measurements at site of most marked compromise. * Mild: canal compromise of less than 1/3. * Moderate: canal compromise of 1/3 to 2/3. * Severe: canal compromise of greater than 2/3. Location descriptors: * Central, right/left central, right/left subarticular, right/left foraminal, right/left extraforaminal or far lateral. Right/left central should supersede paracentral (a more general term). * In sagittal plane: discal, infrapedicular, suprapedicular, or pedicular. Dictated by: Vee Carty M.D. on 05/29/2025 at 14:30 Approved by: Vee Carty M.D. on 05/29/2025 at 14:50
== END ==
LOC: MRI 11:47
PROVIDERS: PCP Family Medicine; Referring Provider Family Medicine; Visit Provider Family Medicine
DX: M51.16 Intervertebral disc disorders with radiculopathy, lumbar region (principal); M48.061 Spinal stenosis, lumbar region without neurogenic claudication; M48.07 Spinal stenosis, lumbosacral region
CPT/HCPCS: 72148